=== PATIENT | female | born 1960 | race Caucasian/White ===

== ENCOUNTER → 2021-10-05 | Outpatient (REF) | payer OTHER ==
[2021-10-05 18:07] LABS: MAU/CREAT RATIO 39.2 MCG/MG (0.0-30.0)
== END ==
LOC: M LAB REF 17:02
PROVIDERS: ATTEND Nurse Practitioner Family
DX: E11.65 Type 2 diabetes mellitus with hyperglycemia (principal)

== ENCOUNTER → 2022-12-06 | Outpatient (REF) | payer OTHER ==
[2022-12-06 18:49] LABS: CREATININE, URINE 240.3 MG/DL; MAU/CREAT RATIO 46.6 MCG/MG (0.0-30.0)
== END ==
LOC: M LAB REF 17:08
PROVIDERS: ATTEND Nurse Practitioner Family
DX: E11.65 Type 2 diabetes mellitus with hyperglycemia (principal)

== ENCOUNTER 2024-01-30 11:06 | Observation (INO) | payer OTHER ==
[~2024-01-30] VITALS: Ht 170.2 cm; Wt 65.2 kg
[2024-01-30] MEDS ORDERED: METF500T13 PO (11:14)
[2024-01-30] MEDS ORDERED: ROSU40TA63 PO (11:14)
[2024-01-30 12:20] LABS: BASO % 0.2 % (0.0-1.0); EOS # 0.1 10^3/uL (0.0-0.5); EOS % 0.5 % (0.0-3.0); HEMATOCRIT 34.5 % (36.0-47.0); HEMOGLOBIN 11.9 g/dl (12.0-15.5); LYMPH # 1.2 10^3/uL (1.5-5.0); LYMPH % 8.9 % (24.0-44.0); MEAN CORPUSCULAR HEMOGLOBIN 30.9 pg (27.0-33.0); MEAN CORPUSCULAR HGB CONC 34.5 g/dl (32.0-36.5); MEAN CORPUSCULAR VOLUME 89.6 fl (80.0-96.0); MONO # 0.8 10^3/uL (0.0-0.8); MONO % 6.1 % (2.0-8.0); NEUTROPHILS # 11.4 10^3/uL (1.5-8.5); NEUTROPHILS % 83.8 % (36.0-66.0); PLATELET COUNT, AUTOMATED 159 10^3/uL (150-450); RED BLOOD COUNT 3.85 10^6/uL (4.00-5.40); WHITE BLOOD COUNT 13.6 10^3/uL (4.0-10.0)
[2024-01-30] MEDS: METOCLOPRAMIDE INJ 10MG/2ML VIAL IV ONE (12:38)
[2024-01-30] MEDS: NS 1,000 ML IV ONE (12:38)
[2024-01-30] MEDS: KETOROLAC 30 MG/ML 1ML VIAL IV ONE (12:38)
[2024-01-30 12:48] LABS: ALBUMIN 3.7 G/DL (3.2-5.2); BILIRUBIN,DIRECT 0.5 MG/DL (<0.4); BILIRUBIN,TOTAL 2.3 MG/DL (0.3-1.2); TOTAL PROTEIN 7.2 G/DL (5.7-8.2)
[2024-01-30] MEDS: cefTRIAXone SOD 1 GM in D5W MINI-BAG PLUS 50 ML IV ONE (14:20)
[2024-01-30] MEDS ORDERED: ONDANSETRON 4MG 2ML VIAL IV PRN (14:50)
[2024-01-30] MEDS ORDERED: MORPHINE 2 MG/ML 1ML VIAL IV PRN ×2 (14:50)
[2024-01-30] MEDS ORDERED: GLUCOSE 4 GM CHEW PO PRN (14:50)
[2024-01-30] MEDS ORDERED: DEXTROSE 50% 50ML SYRINGE IV PRN (14:50)
[2024-01-30] MEDS ORDERED: GLUCAGON INJ 1MG VIAL SC PRN (14:50)
[2024-01-30] MEDS ORDERED: ACETAMINOPHEN 500 MG TAB PO PRN (14:50)
[2024-01-30] MEDS ORDERED: ROSU5TAB40 PO (14:59)
[2024-01-30] MEDS ORDERED: TAMS1CAP17 PO (14:59)
[2024-01-30] MEDS ORDERED: METF-838 PO ×2 (14:59)
[2024-01-30] MEDS ORDERED: MULT-193 PO (15:00)
[2024-01-30] MEDS ORDERED: VITA100016 PO (15:00)
[2024-01-30] MEDS ORDERED: HYDR-3713 PO (15:02)
[2024-01-30] MEDS ORDERED: HOME MED LIST COMPLETE! XX SCH (15:05)
[2024-01-30] MEDS: NS 1,000 ML IV SCH (15:23)
[2024-01-30] MEDS ORDERED: KETOROLAC 60MG 2ML VIAL As Ordered ONE (17:43)
[2024-01-30] MEDS ORDERED: LIDOCAINE 2% 100MG/5ML SDV (FOR ANES.) As Ordered ONE (17:43)
[2024-01-30] MEDS ORDERED: MIDAZOLAM INJ 2MG/2ML VIAL As Ordered ONE (17:43)
[2024-01-30] MEDS ORDERED: propofoL 200 MG/20 ML VIAL As Ordered ONE (17:43)
[2024-01-30] MEDS ORDERED: fentaNYL 100 MCG/2 ML INJECTION As Ordered ONE (17:43)
[2024-01-30] MEDS: INSULIN LISPRO (NovoLOG) PER UNIT SC SCH (18:00)
[2024-01-30] MEDS: ISOVUE-300 61% 100ML VIAL As Ordered ONE (18:30)
[2024-01-30 19:58] VITALS: BP 109/94; TEMP 97.9; O2SAT 97
[2024-01-30 20:30] VITALS: BP 156/84; TEMP 97.5; O2SAT 95
[2024-01-30 21:31] VITALS: BP 142/78; TEMP 97.6; O2SAT 96
[2024-01-30 22:30] VITALS: BP 148/72; TEMP 97; O2SAT 92
[2024-01-30 23:31] VITALS: BP 149/84; TEMP 97; O2SAT 92
[2024-01-31 00:31] VITALS: BP 150/82; TEMP 97.6; O2SAT 92
[2024-01-31 01:32] VITALS: BP 144/88; TEMP 97; O2SAT 94
[2024-01-31 02:32] VITALS: BP 137/70; TEMP 97.8; O2SAT 94
[2024-01-31 03:32] VITALS: BP 134/71; TEMP 97.9; O2SAT 94
[2024-01-31 05:36] VITALS: BP 158/90; TEMP 97.9; O2SAT 95
[2024-01-31 06:51] LABS: ALBUMIN 2.7 G/DL (3.2-5.2); BILIRUBIN,TOTAL 0.9 MG/DL (0.3-1.2); CREATININE FOR GFR 1.39 MG/DL (0.55-1.30); GLOMERULAR FILTRATION RATE 40.6 (>45); POTASSIUM SERUM 3.4 MMOL/L (3.5-5.1); TOTAL PROTEIN 5.4 G/DL (5.7-8.2)
[2024-01-31 06:56] LABS: HEMATOCRIT 29.1 % (36.0-47.0); MEAN CORPUSCULAR HEMOGLOBIN 30.4 pg (27.0-33.0); MEAN CORPUSCULAR VOLUME 92.1 fl (80.0-96.0); PLATELET COUNT, AUTOMATED 125 10^3/uL (150-450); RED BLOOD COUNT 3.16 10^6/uL (4.00-5.40); WHITE BLOOD COUNT 7.1 10^3/uL (4.0-10.0)
[2024-01-31 07:00] LABS: HEMOGLOBIN 9.6 g/dl (12.0-15.5)
[2024-01-31] MEDS: INSULIN LISPRO (NovoLOG) PER UNIT SC SCH (08:58)
[2024-01-31 10:00] VITALS: BP 125/82; TEMP 97.9; O2SAT 99
[2024-01-31] MEDS ORDERED: INSULIN LISPRO (NovoLOG) PER UNIT SC SCH (21:00)
== END 2024-01-31 11:15 | disposition home or self-care (01) ==
LOC: M ED 11:06 → M ED INP 14:47 → M MS5PR 16:47
PROVIDERS: ADMIT Family Medicine; ATTEND Family Medicine
DX: N13.1 Hydronephrosis with ureteral stricture, not elsewhere classified (principal); N17.9 Acute kidney failure, unspecified; R11.2 Nausea with vomiting, unspecified; E11.9 Type 2 diabetes mellitus without complications; E78.5 Hyperlipidemia, unspecified; I10 Essential (primary) hypertension; E04.9 Nontoxic goiter, unspecified; R42 Dizziness and giddiness; Z88.0 Allergy status to penicillin; Z84.1 Family history of disorders of kidney and ureter; Z83.3 Family history of diabetes mellitus
CPT/HCPCS: 36415; 52356; 74176; 76000; 80047; 80053; 80076; 81001; 82365; 83690; 85025; 85027; 87088; 96361; 96374; 96375; 99284; C1769; C2617; J0696; J1885; J2250; J2765; J3010; Q9967